=== PATIENT | male | born 1955 | race Caucasian/White ===

== ENCOUNTER → 2016-11-15 | Outpatient (REF) ==
[2015-12-21 09:23] VITALS: BMI 26.4
--- NOTE | 2016-11-15 10:36 | DI ---
EXAM: Chest two views HISTORY: Screening, employment COMPARISON: 10/28/2015 TECHNIQUE: Two views of the chest were performed FINDINGS: The lungs are clear. There is no pleural effusion or pneumothorax. The heart is normal in size. The mediastinal contour is normal. There are no acute abnormalities of the bones. IMPRESSION: No acute cardiopulmonary process.
== END ==
LOC: RAD 09:55
DX: Z02.89 Encounter for other administrative examinations (principal)